=== PATIENT | female | born 1985 | race Caucasian/White ===

== ENCOUNTER 2017-05-31 07:03 | Emergency (ER) | payer MEDICAID ==
[~2017-05-31] VITALS: Ht 157.5 cm; Wt 83.3 kg
[~2017-05-31 07:03] MED LIST: DENIES; HYDR-845 PO; LORA-932 PO; TRIA15CR55 TOP
[2017-05-31 07:08] VITALS: Ht 157.5 cm; Wt 83.3 kg
[2017-05-31] MEDS ORDERED: ACETAMINOPHEN 500 MG TAB PO STA (08:26)
--- NOTE | 2017-05-31 08:32 | ERD ---
ER Documentation Chief Complaint Chief Complaint Vaginal bleeding/pelvic pain, 10 weeks HPI This is a 31-year-old female who presents to the emergency department today complaining of spotting when she wiped this morning. States she has been urinating more than usual. States she is approximately 10 weeks . States she last had an ultrasound at 4 weeks and was told that everything is normal. States she has not taken any medication for the pain. Denies any fevers or chills, vomiting. ROS All systems reviewed and are negative except as per history of present illness. Medications Home Meds Active Scripts Triamcinolone Acetonide* (Kenalog*) 0.1%-15GM Cr, 1 APPLIC TOP BID for 7 Days, EA Prov:MICHELLE BEDOYA PA-C 12/29/14 Loratadine (Allergy) 10 Mg Tablet, 10 MG PO DAILY, #30 TAB Prov:MICHELLE BEDOYA PA-C 12/29/14 Hydroxyzine Hcl* (Atarax*) 50 Mg Tab, 50 MG PO BEDSIDE MEDICATION Y for ITCHING , #14 TAB Prov:MICHELLE BEDOYA PA-C 12/29/14 Reported Medications [Denies] No Conflict Check 05/11/11 Allergies Allergies: Coded Allergies: No Known Allergies (Verified Allergy, Mild, 12/29/14) PMhx/Soc History of Surgery: Yes () Anesthesia Reaction: No Hx Neurological Disorder: Yes (HEADACHE) Hx Respiratory Disorders: No Hx Cardiac Disorders: No Hx Psychiatric Problems: No Hx Miscellaneous Medical Probl: No Hx Alcohol Use: No Hx Substance Use: No Hx Tobacco Use: No Smoking Status: Never smoker Physical Exam Vitals Vital Signs Date Time Temp Pulse Resp B/P Pulse Ox O2 Delivery O2 Flow Rate FiO2 05/31/17 07:08 98.7 65 18 115/60 100 Physical Exam Const: NAD Head: Atraumatic Eyes: Normal Conjunctiva ENT: Normal External Ears, Nose and Mouth. Neck: Full range of motion..~ No meningismus. Resp: Clear to auscultation bilaterally Cardio: Regular rate and rhythm, no murmurs Abd: Soft, non tender, non distended. Normal bowel sounds. No tenderness at McBurney's. Skin: No petechiae or rashes Back: No midline or flank tenderness Ext: No cyanosis, or edema Neur: Awake and alert Psych: Normal Mood and Affect Result Diagram: 05/31/17844 Results 24 hrs Laboratory Tests Test 05/31/17 08:45 White Blood Count 8.210^3/ul Red Blood Count 5.0910^6/ul Hemoglobin 14.3g/dl Hematocrit 41.7% Mean Corpuscular Volume 81.9fl Mean Corpuscular Hemoglobin 28.1pg Mean Corpuscular Hemoglobin Concent 34.3g/dl Red Cell Distribution Width 11.9% Platelet Count 98164^3/UL Mean Platelet Volume 10.5fl Neutrophils % 61.3% Lymphocytes % 30.9% Monocytes % 4.5% Eosinophils % 2.4% Basophils % 0.5% Nucleated Red Blood Cells % 0.0/100WBC Neutrophils # 5.010^3/ul Lymphocytes # 2.510^3/ul Monocytes # 0.410^3/ul Eosinophils # 0.210^3/ul Basophils # 0.010^3/ul Nucleated Red Blood Cells # 0.010^3/ul Urine Color YELLOW Urine Clarity CLEAR Urine pH 6.0 Urine Specific [place] 1.017 Urine Ketones NEGATIVEmg/dL Urine Nitrite NEGATIVEmg/dL Urine Bilirubin NEGATIVEmg/dL Urine Urobilinogen NEGATIVEmg/dL Urine Leukocyte Esterase TRACELeu/ul Urine Microscopic RBC 10/HPF Urine Microscopic WBC 5/HPF Urine Squamous Epithelial Cells FEW/HPF Urine Bacteria FEW/HPF Urine Mucus FEW/HPF Urine Hemoglobin 3+mg/dL Urine Glucose NEGATIVEmg/dL Urine Total Protein NEGATIVEmg/dl Beta HCG, Quantitative 3303.7mIU/ml Current Medications Medications (Trade) Dose Ordered Sig/Tk Route PRN Reason Start Time Stop Time Status Last Admin Dose Admin Acetaminophen (Tylenol Tab) 500 mg ONCE STAT PO 05/31/17 08:26 05/31/17 08:27 Cancel DIAGNOSTIC IMAGING REPORT Patient: KATHY العراقي : 1985 Age: 31 Sex: F MR #: [id number] DOS: 05/31/17825 Ordering MD: YENI SENA PA-C Location: [facility] Room/Bed: PROCEDURE: First trimester obstetrical ultrasound. CLINICAL INDICATION: , pelvic pain TECHNIQUE: Transabdominal bess scale and color Doppler ultrasound of the uterus of less than 14 weeks gestation (first trimester). COMPARISON: None available FINDINGS: A single intrauterine gestation is present. No evidence of extrauterine gestation. Mean sac diameter: 3.69 cm [place]-rump length: 1.79 cm heart rate: Not detected Small subchorionic hemorrhage. Normal appearance of the right ovary. Left ovary not visualized. No adnexal masses are seen. Free fluid: None. IMPRESSION: Single failed intrauterine gestation with an estimated gestational age of 8 weeks 5 days by ultrasound criteria. Critical results were discussed with Yeni Sena by telephone 2016 9:21:[address] Raphael Freed RPTAT: AADD .Raphael Freed MD, MD Date Time Electronically viewed and signed by .Raphael Freed MD, MD on 05/31/2017 09:25 .B/ CC: YENI SENA PA-C Procedures/MDM This is a 31 year old female who presents to the emergency department today complaining of vaginal bleeding. Patient states she is approximately 10 weeks . Given this I did obtain a complete OB workup. Laboratory work shows no elevated white blood cell count. She is not anemic. Platelets are within normal limits. UA is negative for infection Beta quant hCG 3303.7 Rh status A + Ultrasound shows a single intrauterine gestation of 8 weeks and 5 days with no heart tones. There is a small subchorionic hemorrhage. I did receive a call from the radiologist notifying me of no FHT. There are noadnexal masses seen She declined pain medication here in the emergency department. She will be given a prescription for Tylenol for home. Patient symptoms at this time is consistent with vaginal bleeding in early and likely failed no heart tone and subchorionic hemorrhage. Patient is afebrile and otherwise well-appearing. I have low suspicion for ectopic , tubo ovarian abscess, ovarian torsion. I have explained the results to the patient. I have explained to the patient that they need to follow-up in 48 hours for a repeat beta quant. Did explain to the patient that she may continue to have increased vaginal bleeding and abdominal cramping. Patient understood. At this time the patient is stable for discharge and outpatient management. Patient should follow up with their PCP in the next 1-2 days. They may return to the emergency department sooner for any persistent or worsening of symptoms. Patient understood and agreed with the plan. Departure Diagnosis: Primary Impression: Vaginal bleeding in patient at less than 20 weeks gestation Condition: YENI Jose PA-C May 31, 2017 08:32
[2017-05-31 09:08] LABS: BASOPHILS % 0.5 % (0.0-2.0); EOSINOPHILS # 0.2 10^3/ul (0.0-0.5); EOSINOPHILS % 2.4 % (0.0-7.0); HEMATOCRIT 41.7 % (37.0-47.0); HEMOGLOBIN 14.3 g/dl (12.0-16.0); LYMPHOCYTES # 2.5 10^3/ul (0.8-2.9); LYMPHOCYTES % 30.9 % (15.0-51.0); MEAN CORPUSCULAR HEMOGLOBIN 28.1 pg (29.0-33.0); MEAN CORPUSCULAR HGB CONC 34.3 g/dl (32.0-37.0); MEAN CORPUSCULAR VOLUME 81.9 fl (82.0-101.0); MEAN PLATELET VOLUME 10.5 fl (7.4-10.4); MONOCYTE # 0.4 10^3/ul (0.3-0.9); MONOCYTES % 4.5 % (0.0-11.0); NEUTROPHILS % 61.3 % (39.0-77.0); PLATELET COUNT 290 10^3/UL (140-415); RED BLOOD COUNT 5.09 10^6/ul (4.20-5.40); RED CELL DISTRIBUTION WIDTH 11.9 % (11.5-14.5); WHITE BLOOD COUNT 8.2 10^3/ul (4.8-10.8)
[2017-05-31 09:16] LABS: ADD UMIC YES; UR ASCORBIC ACID NEGATIVE (NEGATIVE); UR BACTERIA FEW /HPF (NONE SEEN); UR BILIRUBIN (Dip) NEGATIVE (NEGATIVE); UR BLOOD (Dip) 3+ mg/dL (NEGATIVE); UR CLARITY CLEAR (CLEAR); UR COLOR YELLOW (YELLOW); UR GLUCOSE (Dip) NEGATIVE (NEGATIVE); UR KETONES (Dip) NEGATIVE (NEGATIVE); UR LEUKOCYTE ESTERASE (Dip) TRACE Leu/ul (NEGATIVE); UR MUCUS FEW /HPF (NONE SEEN); UR NITRITE (Dip) NEGATIVE (NEGATIVE); UR RBC 10 /HPF (0-5); UR SPECIFIC GRAVITY (Dip) 1.017 (1.003-1.030); UR SQUAMOUS EPITHELIAL CELL FEW /HPF (FEW); UR TOTAL PROTEIN (Dip) NEGATIVE (NEGATIVE); UR UROBILINOGEN (Dip) NEGATIVE (NEGATIVE)
--- NOTE | 2017-05-31 09:25 | RADRPT ---
PROCEDURE: First trimester obstetrical ultrasound. CLINICAL INDICATION: , pelvic pain TECHNIQUE: Transabdominal bess scale and color Doppler ultrasound of the uterus of less t peoples 14 weeks gestation (first trimester). COMPARISON: None available FINDINGS: A single intrauterine gestation is present. No evidence of extrauterine gestation. Mean sac diameter: 3.69 cm [place]-rump length: 1.79 cm heart rate: Not detected Small subchorionic hemorrhage. Normal appearance of the right ovary. Left ovary not visualized. No adnexal masses are seen. Free fluid: None. IMPRESSION: Single failed intrauterine gestation with an estimated gestational age of 8 weeks 5 days by ultrasou nd criteria. Critical results were discussed with Yeni Jarquin by telephone 05/31/2017 9:21:31 AM by Siria Freed RPTAT: AADD .Raphael Freed MD, Date Time Electronically viewed and signed by .Raphael Freed MD, on 05/31/2017 09:25 .B/
[2017-05-31] MEDS ORDERED: ACET500C5 PO (11:21)
[2017-05-31 11:25] VITALS: BP 118/64; PULSE 62; RESP 18; TEMP 98.5
== END 2017-05-31 11:25 | disposition home or self-care (01) ==
LOC: FTE 07:03
DX: O20.9 Hemorrhage in early pregnancy, unspecified (principal); R10.2 Pelvic and perineal pain; Z3A.08 8 weeks gestation of pregnancy
CPT/HCPCS: 36415; 76801; 81001; 84702; 85025; 86900; 86901; Z7502

== ENCOUNTER 2017-06-03 08:21 | Emergency (ER) | payer MEDICAID ==
[~2017-06-03] VITALS: Ht 165.1 cm; Wt 81.3 kg
[~2017-06-03 08:21] MED LIST changes: +ACET500C5 PO
[2017-06-03 08:25] VITALS: Ht 165.1 cm; Wt 81.3 kg
--- NOTE | 2017-06-03 09:11 | ERD ---
ER Documentation Chief Complaint Chief Complaint Complains of pelvic pain x 3 days here for a recheck HPI Patient is a 31-year-old female, , last menstrual period on 03-15-17, presents to the ED for concerns of pelvic pain and vaginal bleeding. Patient was seen here 3 days ago. At that time she was told that she likely had demise per ultrasound findings. Patient presents today for repeat blood work and ultrasound. Patient states that she is having pelvic pain. Patient also reports increased bleeding and blood clot passage yesterday. Patient reports using 4-5 pads. Minimal bleeding today. Patient denies any dizziness or lightheadedness. Patient denies any fevers or chills. Patient denies any vomiting. ROS All systems reviewed and are negative except as per history of present illness. Medications Home Meds Active Scripts Ferrous Sulfate* (Ferrous Sulfate*) 325 Mg Tabec, 325 MG PO BID, #60 TAB Prov:VITA MATT PA-C 06/03/17 Acetaminophen* (Tylophen*) 500 Mg Capsule, 1 CAP PO Q6H Y for PAIN AND OR ELEVATED TEMP, #20 CAP Prov:VITA MATT PA-C 06/03/17 Cephalexin* (Keflex*) 500 Mg Capsule, 500 MG PO TID for 7 Days, CAP Prov:VITA MATT PA-C 06/03/17 Acetaminophen* (Tylophen*) 500 Mg Capsule, 1 CAP PO Q6H Y for PAIN AND OR ELEVATED TEMP, #30 CAP Prov:ADRIANO SENA PA-C 05/31/17 Triamcinolone Acetonide* (Kenalog*) 0.1%-15GM Cr, 1 APPLIC TOP BID for 7 Days, EA Prov:MICHELLE BEDOYA PA-C 12/29/14 Loratadine (Allergy) 10 Mg Tablet, 10 MG PO DAILY, #30 TAB Prov:MICHELLE BEDOYA PA-C 12/29/14 Hydroxyzine Hcl* (Atarax*) 50 Mg Tab, 50 MG PO BEDSIDE MEDICATION Y for ITCHING , #14 TAB Prov:MICHELLE BEDOYA PA-C 12/29/14 Reported Medications [Denies] No Conflict Check 05/11/11 Allergies Allergies: Coded Allergies: No Known Allergies (Verified Allergy, Mild, 06/03/17) PMhx/Soc History of Surgery: Yes () Anesthesia Reaction: No Hx Neurological Disorder: Yes (HEADACHE) Hx Respiratory Disorders: No Hx Cardiac Disorders: No Hx Psychiatric Problems: No Hx Miscellaneous Medical Probl: No Hx Alcohol Use: No Hx Substance Use: No Hx Tobacco Use: No Smoking Status: Never smoker Physical Exam Vitals Vital Signs Date Time Temp Pulse Resp B/P Pulse Ox O2 Delivery O2 Flow Rate FiO2 06/03/17 12:04 98.0 67 20 111/74 100 Room Air 06/03/17 08:25 97.6 85 20 120/58 98 Physical Exam GENERAL: Well-developed, well-nourished female. Appears in no acute distress. HEAD: Normocephalic, atraumatic. EYES: Pupils are equally reactive bilaterally. EOMs grossly intact. No conjunctival erythema. ENT: Moist mucous membranes. No uvula deviation. No kissing tonsils. NECK: Supple. No meningismus. Normal range of motion of the neck. LUNG: Clear to auscultation bilaterally. No rhonchi, wheezing, rales or coarse breath sounds. HEART: Regular rate and rhythm. No murmurs, rubs or gallops. ABDOMEN: Soft and nondistended. Tender to palpation of the suprapubic region. Positive bowel sounds in all four quadrants. No rebound tenderness, no guarding. (-) McBurney's point tenderness. No CVA tenderness. PELVIC: Exam was completed with a field clerk present. Normal external female genitalia. Minimal blood noted in vaginal canal. Cervix visualized, os is open , minimal active bleeding. No products of conception noted in os or vaginal canal. EXTREMITIES: Equal pulses bilaterally. No peripheral clubbing, cyanosis or edema. No unilateral leg swelling. NEUROLOGIC: Alert and oriented. Moving all four extremities without any difficulty. Normal speech. Steady gait. SKIN: Normal color. Warm and dry. No rashes or lesions. Result Diagram: 06/03/17923 Results 24 hrs Laboratory Tests Test 06/03/17 08:33 06/03/17 09:24 Beta HCG, Quantitative 223.6mIU/ml White Blood Count 8.310^3/ul Red Blood Count 3.9410^6/ul Hemoglobin 11.2g/dl Hematocrit 32.2% Mean Corpuscular Volume 81.7fl Mean Corpuscular Hemoglobin 28.4pg Mean Corpuscular Hemoglobin Concent 34.8g/dl Red Cell Distribution Width 12.2% Platelet Count 71937^3/UL Mean Platelet Volume 10.3fl Neutrophils % 57.2% Lymphocytes % 36.3% Monocytes % 3.7% Eosinophils % 2.0% Basophils % 0.6% Nucleated Red Blood Cells % 0.0/100WBC Neutrophils # 4.810^3/ul Lymphocytes # 3.010^3/ul Monocytes # 0.310^3/ul Eosinophils # 0.210^3/ul Basophils # 0.110^3/ul Nucleated Red Blood Cells # 0.010^3/ul Urine Color YELLOW Urine Clarity SLIGHTLY CLOUDY Urine pH 7.0 Urine Specific [place] 1.015 Urine Ketones NEGATIVEmg/dL Urine Nitrite NEGATIVEmg/dL Urine Bilirubin NEGATIVEmg/dL Urine Urobilinogen NEGATIVEmg/dL Urine Leukocyte Esterase 1+Vicki/ul Urine Microscopic RBC > 182/HPF Urine Microscopic WBC 35/HPF Urine Squamous Epithelial Cells FEW/HPF Urine Bacteria FEW/HPF Urine Hemoglobin 3+mg/dL Urine Glucose NEGATIVEmg/dL Urine Total Protein 2+mg/dl Procedures/MDM ED COURSE: The patient was stable throughout ED course. I kept the patient and/or family informed of laboratory and diagnostic imaging results throughout the ED course. DIAGNOSTIC IMAGING: Read by radiologist. Patient: KATHY العراقي : 1985 Age: 31 Sex: F MR #: [id number] DOS: 06/03/17 0000 Ordering MD: VITA MATT PA-C Location: [facility] Room/Bed: PROCEDURE: US Pelvis. CLINICAL INDICATION: Vaginal bleeding TECHNIQUE: Transabdominal and transvaginal pelvic ultrasound are performed. COMPARISON: 05/31/2017 FINDINGS: The uterus is normal in echogenicity and anteverted in orientation. Uterus has a bicornuate configuration and measures 8.8 x 5.4 x 7.0 cm. No focal fibroids are identified. Previously seen IUP is no longer identified suggesting spontaneous . Correlation with serial beta HCG level is recommended. Bilateral endometrial linings are thickened and heterogeneous measuring 1.8 cm.. This should be followed to evaluate for resolution and exclude retained products of conception. Both ovaries are identified, and normal in size, shape, and appearance. No complexed adnexal masses are seen.. Normal Doppler flow is noted of both ovaries. The right ovary measures 2.3 x 1.8 x 1.7 cm, and the left ovary measures 2.5 x 1.9 x 1.8 cm There is small free fluid adjacent to the left ovary IMPRESSION: 1. Bicornuate configuration of the uterus. 2. Previously seen in the IUP is no longer visualized suggesting spontaneous . Correlation with serial beta HCG level is recommended. 3. Thickened heterogeneous endometrial lining measuring 1.8 cm. This should be followed to exclude retained products of conception 4. Ovaries normal bilaterally. 5. Small free fluid adjacent to the left ovary RPTAT: HH .Marc Worrell MD, MD Date Time Electronically viewed and signed by .Marc Worrell MD, on 06/03/2017 10:36 .W/ CC: VITA MATT PA-C PROCEDURES: None. MEDICATIONS GIVEN: None. Patient was offered pain medication in the ED however she stated she did not want any given that she had not eaten yet. MEDICAL DECISION MAKING: This is a 31-year-old female, , who presents to the ED for concerns of vaginal bleeding and pelvic pain. She was seen here 3 days ago and told that she had demise per ultrasound findings. Patient does admit to increased bleeding and blood clot passage yesterday. Patient denied any lightheadedness or dizziness. Patient presented today for repeat beta-hCG level and repeat ultrasound. Vital signs were reviewed. Patient was afebrile. Patient was hemodynamically stable. Quantitative b-HCG today was 223. Patient's beta-hCG does appear to be downtrending. Beta-hCG on 05-31-17 was noted to be 3303.7. Patient's blood type was A+. No indication for RhoGam at this time. CBC showed no evidence of systemic infection. Patient hemoglobin level was noted to 11.2 with hematocrit of 32.2. Slight anemia noted. There is no indication for an emergent blood transfusion at this time. Patient will be given iron supplements. UA did show 1+ leukocyte esterase and 35 WBCs. Will treat patient with a course of antibiotics at this time. Pelvic US showed 1. Bicornuate configuration of the uterus. 2. Previously seen in the IUP is no longer visualized suggesting spontaneous . Correlation with serial beta HCG level is recommended. 3. Thickened heterogeneous endometrial lining measuring 1.8 cm. This should be followed to exclude retained products of conception 4. Ovaries normal bilaterally. 5. Small free fluid adjacent to the left ovary Given these findings, the patient's presentation is most consistent with spontaneous and UTI. Per ultrasound findings, it appears that patient has passed previously seen IUP however unable to rule out any retained products of conception at this time. Unable to definitively rule out complete or retained products of conception given that patient is currently having a spontaneous . Patient was advised to continue to monitor symptoms closely. Patient was advised that she will require a repeat ultrasound to rule out any retained products of conception. Patient was also advised to follow-up with her [employer] in the next 1-2 days. Patient will need also continue to monitor her beta-hCG levels to assure complete downtrending. Low suspicion for ectopic , ruptured ectopic , endometritis, missed , placental abruption, pyelonephritis. Patient was stable at time of discharge. Patient was nontoxic, [id number]. I did discuss the patient's case with my supervising physician, Dr. Domingo, who reviewed the patient's blood work and ultrasound findings and agreed that patient was stable for outpatient management. PRESCRIPTIONS: Tylenol, Keflex, Iron supplements DISCHARGE: At this time, patient is stable for discharge and outpatient management. Patient was given a copy of all imaging studies and blood work obtained today.. I have instructed the patient to follow-up with her OBGYN in 1-2 days for further monitoring including a repeat b-HCG level and ultrasound. I have instructed the patient to promptly return to the ER at any time for any new or worsening symptoms including increased pain, nausea, vomiting, continued bleeding, weakness, syncope or fever. The patient and/or family expressed understanding of and agreement with this plan. All questions were answered. Home care instructions were provided. Disclaimer: Inadvertent spelling and grammatical errors are likely due to EHR/ dictation software use and do not reflect on the overall quality of patient care. Also, please note that the electronic time recorded on this note does not necessarily reflect the actual time of the patient encounter. Departure Diagnosis: Primary Impression: Spontaneous Additional Impression: UTI (urinary tract infection) Urinary tract infection type: acute cystitis Hematuria presence: without hematuria Qualified Code: N30.00 - Acute cystitis without hematuria Condition: Stable Patient Instructions: Miscarriage, Spontaneous (Completed) Additional Instructions: Call your primary care doctor TOMORROW for an appointment during the next 1-2 days.See the doctor sooner or return here if your condition worsens before your appointment time. VITA MATT PA-C Jun 03, 2017 09:11
[2017-06-03 10:00] LABS: BASOPHIL # 0.1 10^3/ul (0.0-0.1); BASOPHILS % 0.6 % (0.0-2.0); EOSINOPHILS # 0.2 10^3/ul (0.0-0.5); HEMATOCRIT 32.2 % (37.0-47.0); HEMOGLOBIN 11.2 g/dl (12.0-16.0); LYMPHOCYTES % 36.3 % (15.0-51.0); MEAN CORPUSCULAR HEMOGLOBIN 28.4 pg (29.0-33.0); MEAN CORPUSCULAR HGB CONC 34.8 g/dl (32.0-37.0); MEAN CORPUSCULAR VOLUME 81.7 fl (82.0-101.0); MEAN PLATELET VOLUME 10.3 fl (7.4-10.4); MONOCYTE # 0.3 10^3/ul (0.3-0.9); MONOCYTES % 3.7 % (0.0-11.0); NEUTROPHIL # 4.8 10^3/ul (1.6-7.5); NEUTROPHILS % 57.2 % (39.0-77.0); PLATELET COUNT 276 10^3/UL (140-415); RED BLOOD COUNT 3.94 10^6/ul (4.20-5.40); RED CELL DISTRIBUTION WIDTH 12.2 % (11.5-14.5); WHITE BLOOD COUNT 8.3 10^3/ul (4.8-10.8)
[2017-06-03 10:13] LABS: ADD UMIC YES; UR ASCORBIC ACID NEGATIVE (NEGATIVE); UR BACTERIA FEW /HPF (NONE SEEN); UR BILIRUBIN (Dip) NEGATIVE (NEGATIVE); UR BLOOD (Dip) 3+ mg/dL (NEGATIVE); UR CLARITY SLIGHTLY CLOUDY (CLEAR); UR COLOR YELLOW (YELLOW); UR GLUCOSE (Dip) NEGATIVE (NEGATIVE); UR KETONES (Dip) NEGATIVE (NEGATIVE); UR LEUKOCYTE ESTERASE (Dip) 1+ Leu/ul (NEGATIVE); UR NITRITE (Dip) NEGATIVE (NEGATIVE); UR RBC > 182 /HPF (0-5); UR SPECIFIC GRAVITY (Dip) 1.015 (1.003-1.030); UR SQUAMOUS EPITHELIAL CELL FEW /HPF (FEW); UR TOTAL PROTEIN (Dip) 2+ mg/dl (NEGATIVE); UR UROBILINOGEN (Dip) NEGATIVE (NEGATIVE)
--- NOTE | 2017-06-03 10:37 | RADRPT ---
PROCEDURE: US Pelvis. CLINICAL INDICATION: Vaginal bleeding TECHNIQUE: Transabdominal and transvaginal pelvic ultrasound are performed. COMPARISON: 05/31/2017 FINDINGS: The uterus is normal in echogenicity and anteverted in orientation. Uterus has a bicornuate configu ration and measures 8.8 x 5.4 x 7.0 cm. No focal fibroids are identified. Previously seen IUP is no longer identified suggesting spontaneous . Correlation with serial beta HCG level is recomme nded. Bilateral endometrial linings are thickened and heterogeneous measuring 1.8 cm.. This should b e followed to evaluate for resolution and exclude retained products of conception. Both ovaries are identified, and normal in size, shape, and appearance. No complexed adnexal masses are seen.. Normal Doppler flow is noted of both ovaries. The right ovary measures 2.3 x 1.8 x 1.7 cm, and the left ovary measures 2.5 x 1.9 x 1.8 cm There is small free fluid adjacent to the left ovary IMPRESSION: 1. Bicornuate configuration of the uterus. 2. Previously seen in the IUP is no longer visualized suggesting spontaneous . Correlation with serial beta HCG level is recommended. 3. Thickened heterogeneous endometrial lining measuring 1.8 cm. This should be followed to exclude retained products of conception 4. Ovaries normal bilaterally. 5. Small free fluid adjacent to the left ovary RPTAT: HH .Marc Worrell MD, Date Time Electronically viewed and signed by .Marc Worrell MD, MD on 06/03/2017 10:36 .W/
[2017-06-03] MEDS ORDERED: CEPH-443 PO (11:57)
[2017-06-03] MEDS ORDERED: ACET500C5 PO (11:58)
[2017-06-03] MEDS ORDERED: FER325 PO (12:02)
[2017-06-03 12:04] VITALS: BP 111/74; PULSE 67; RESP 20; TEMP 98
== END 2017-06-03 12:06 | disposition home or self-care (01) ==
LOC: FTE 08:21
DX: O03.9 Complete or unspecified spontaneous abortion without complication (principal); O23.11 Infections of bladder in pregnancy, first trimester; R10.2 Pelvic and perineal pain
CPT/HCPCS: 36415; 76801; 76817; 81001; 84702; 85025; 86900; 86901; Z7502